=== PATIENT | male | born 1965 | race Caucasian/White ===

== ENCOUNTER 2024-04-18 15:41 | Inpatient (IN) | payer SELFPAY ==
[~2024-04-18] VITALS: Ht 170.1 cm; Wt 67.3 kg
[2024-04-18 15:57] VITALS: BP 167/82
[2024-04-18 16:35] LABS: BASO # 0.1 10*3/uL (0.0-0.1); BASO % 0.5 % (0.0-1.0); EOS # 0.1 10*3/uL (0.0-0.4); HEMATOCRIT 40.4 % (42.0-52.0); LYMPH # 1.1 10*3/uL (1.3-4.4); LYMPH % 9.4 % (27.0-41.0); MEAN CELL VOLUME 87.1 fl (80.0-94.0); MEAN CORPUSCULAR HGB CONC 34.4 g/dl (33.0-37.0); MEAN PLATELET VOLUME 9.1 fl (9.6-12.3); MONO # 0.7 10*3/uL (0.1-1.0); NEUT # 9.4 10*3/uL (2.3-7.9); NEUT % 82.7 % (47.0-73.0); PLATELET COUNT AUTOMATED 396 10*3/uL (130-400); RED BLOOD COUNT 4.64 10*6/uL (4.50-5.90); RED CELL DISTRI WIDTH 12.5 % (0-14.5); WHITE BLOOD COUNT 11.3 10*3/uL (4.8-10.8)
[2024-04-18 16:56] LABS: BUN 10 mg/dl (9-23); CHLORIDE 100 mmol/L (98-107); POTASSIUM 3.6 mmol/L (3.4-5.1)
[2024-04-18] MEDS ORDERED: INSULIN REGULAR, HUMAN 1 UNIT/0.01 ML IV ONE (17:25)
[2024-04-18] MEDS ORDERED: SODIUM CHLORIDE 0.9% 1,000 ML IV ONE (17:40)
[2024-04-18] MEDS ORDERED: Vancomycin Hydrochloride 250 ML IV ONE (17:40)
[2024-04-18] MEDS ORDERED: Piperacillin Sodium/Tazobact 50 ML IV ONE (17:40)
[2024-04-18] MEDS ORDERED: TEMAZEPAM 15 MG CAP PO PRN (19:25)
[2024-04-18] MEDS ORDERED: ACETAMINOPHEN 650 MG SUPP R PRN (19:25)
[2024-04-18] MEDS ORDERED: DEXTROSE 10 % IN WATER 250 ML IV PRN (19:25)
[2024-04-18] MEDS ORDERED: Ondansetron Hydrochloride 4 MG/2 ML VIAL IV PRN (19:25)
[2024-04-18] MEDS ORDERED: Acetaminophen/Hydrocodone 5 MG/325 MG TABLET PO PRN (19:25)
[2024-04-18] MEDS ORDERED: Magnesium Hydroxide 30 ML UDC PO PRN (19:25)
[2024-04-18] MEDS ORDERED: ACETAMINOPHEN 325 MG TAB PO PRN (19:25)
[2024-04-18] MEDS ORDERED: BISACODYL 5 MG TAB PO PRN (19:25)
[2024-04-18] MEDS ORDERED: BISACODYL 10 MG SUPP R PRN (19:25)
[2024-04-18 19:32] VITALS: BP 153/55
[2024-04-18 21:10] VITALS: BP 147/78
[2024-04-18] MEDS ORDERED: INSULIN LISPRO 1 UNIT/0.01 ML SQ SCH (22:00)
[2024-04-19] VITALS: BP 123/69
[2024-04-19] MEDS ORDERED: METRONIDAZOLE 500 MG TAB PO SCH
[2024-04-19] MEDS ORDERED: Piperacillin Sodium/Tazobact 50 ML IV SCH
[2024-04-19] MEDS ORDERED: VANCOMYCIN/WATER FOR INJ (PEG) 250 ML IV SCH (04:00)
[2024-04-19] MEDS ORDERED: LEPTOSPERMUM HONEY 0.5 OZ TUBE T ONE (06:17)
[2024-04-19 06:19] LABS: BASO # 0.1 10*3/uL (0.0-0.1); BASO % 0.6 % (0.0-1.0); EOS # 0.2 10*3/uL (0.0-0.4); EOS % 1.9 % (1.0-4.0); HEMATOCRIT 36.6 % (42.0-52.0); LYMPH # 1.6 10*3/uL (1.3-4.4); LYMPH % 17.3 % (27.0-41.0); MEAN CELL VOLUME 89.5 fl (80.0-94.0); MEAN CORPUSCULAR HGB 29.8 pg (27.0-31.0); MEAN CORPUSCULAR HGB CONC 33.3 g/dl (33.0-37.0); MEAN PLATELET VOLUME 8.9 fl (9.6-12.3); MONO # 0.7 10*3/uL (0.1-1.0); MONO % 7.7 % (3.0-9.0); NEUT # 6.8 10*3/uL (2.3-7.9); NEUT % 72.2 % (47.0-73.0); PLATELET COUNT AUTOMATED 360 10*3/uL (130-400); RED BLOOD COUNT 4.09 10*6/uL (4.50-5.90); RED CELL DISTRI WIDTH 12.3 % (0-14.5); WHITE BLOOD COUNT 9.4 10*3/uL (4.8-10.8)
[2024-04-19 06:37] LABS: ALKALINE PHOSPHATASE 70 U/L (46-116); BUN 10 mg/dl (9-23); CHLORIDE 106 mmol/L (98-107); CHOLESTEROL 167 mg/dL (<200); FREE T4 1.24 ng/dl (0.89-1.76); LDL CHOLESTEROL 116 mg/dL (9-159); POTASSIUM 3.8 mmol/L (3.4-5.1); SGPT/ALT 8 U/L (5-49); TRIGLYCERIDES 60 mg/dl (<150)
[2024-04-19 08:00] VITALS: BP 151/89
[2024-04-19] MEDS ORDERED: Enoxaparin Sodium 40 MG/0.4 ML SYR SC SCH (10:00)
[2024-04-19] MEDS ORDERED: Cholecalciferol 2,000 UNIT TABLET (50 MCG) PO SCH (10:00)
[2024-04-19] MEDS ORDERED: Insulin Glargine, Recombinan 1 UNIT/0.01 ML SC SCH (10:00)
[2024-04-19 12:00] VITALS: BP 156/81
[2024-04-19] MEDS ORDERED: LISINOPRIL 10 MG TAB PO SCH (12:55)
[2024-04-19 16:00] VITALS: BP 158/68
[2024-04-19 20:00] VITALS: BP 164/87
[2024-04-19] MEDS ORDERED: ATORVASTATIN CALCIUM 40 MG TABLET PO SCH (22:00)
[2024-04-20] VITALS: BP 138/75
[2024-04-20 06:33] LABS: BASO # 0.1 10*3/uL (0.0-0.1); BASO % 0.7 % (0.0-1.0); EOS # 0.2 10*3/uL (0.0-0.4); EOS % 2.7 % (1.0-4.0); HEMATOCRIT 36.2 % (42.0-52.0); LYMPH # 1.7 10*3/uL (1.3-4.4); LYMPH % 23.2 % (27.0-41.0); MEAN CELL VOLUME 89.6 fl (80.0-94.0); MEAN CORPUSCULAR HGB CONC 33.4 g/dl (33.0-37.0); MEAN PLATELET VOLUME 9.2 fl (9.6-12.3); MONO # 0.5 10*3/uL (0.1-1.0); NEUT # 4.7 10*3/uL (2.3-7.9); PLATELET COUNT AUTOMATED 360 10*3/uL (130-400); RED BLOOD COUNT 4.04 10*6/uL (4.50-5.90); RED CELL DISTRI WIDTH 12.4 % (0-14.5); WHITE BLOOD COUNT 7.1 10*3/uL (4.8-10.8)
[2024-04-20 06:59] LABS: BUN 9 mg/dl (9-23); CHLORIDE 107 mmol/L (98-107); POTASSIUM 3.5 mmol/L (3.4-5.1)
[2024-04-20 08:00] VITALS: BP 131/66
[2024-04-20 12:00] VITALS: BP 152/86
[2024-04-20 16:00] VITALS: BP 133/80
[2024-04-20] MEDS ORDERED: VANCOMYCIN/WATER FOR INJ (PEG) 300 ML IV SCH (17:00)
[2024-04-20 20:00] VITALS: BP 139/83
[2024-04-20] MEDS ORDERED: Meropenem 1 GM in SODIUM CHLORIDE 0.9% 100 ML IV SCH (22:00)
[2024-04-21] VITALS: BP 142/84
[2024-04-21 06:31] LABS: BASO # 0.1 10*3/uL (0.0-0.1); BASO % 0.9 % (0.0-1.0); EOS # 0.2 10*3/uL (0.0-0.4); EOS % 3.2 % (1.0-4.0); HEMATOCRIT 34.8 % (42.0-52.0); LYMPH # 1.8 10*3/uL (1.3-4.4); LYMPH % 26.8 % (27.0-41.0); MEAN CORPUSCULAR HGB 29.2 pg (27.0-31.0); MEAN CORPUSCULAR HGB CONC 32.8 g/dl (33.0-37.0); MEAN PLATELET VOLUME 8.9 fl (9.6-12.3); MONO # 0.5 10*3/uL (0.1-1.0); MONO % 7.4 % (3.0-9.0); NEUT # 4.1 10*3/uL (2.3-7.9); NEUT % 61.4 % (47.0-73.0); PLATELET COUNT AUTOMATED 380 10*3/uL (130-400); RED BLOOD COUNT 3.91 10*6/uL (4.50-5.90); RED CELL DISTRI WIDTH 12.4 % (0-14.5); WHITE BLOOD COUNT 6.6 10*3/uL (4.8-10.8)
[2024-04-21 07:13] LABS: BUN 10 mg/dl (9-23); CHLORIDE 107 mmol/L (98-107); POTASSIUM 3.5 mmol/L (3.4-5.1)
[2024-04-21 08:00] VITALS: BP 160/90
[2024-04-21 12:00] VITALS: BP 177/90
[2024-04-21] MEDS ORDERED: Piperacillin Sodium/Tazobact 4.5 GM in SODIUM CHLORIDE 0.9% 100 ML IV SCH (12:00)
[2024-04-21 16:00] VITALS: BP 147/77
[2024-04-21 20:00] VITALS: BP 143/83
[2024-04-22] VITALS: BP 138/85
[2024-04-22 06:38] LABS: BASO # 0.1 10*3/uL (0.0-0.1); BASO % 0.9 % (0.0-1.0); EOS # 0.2 10*3/uL (0.0-0.4); HEMATOCRIT 39.2 % (42.0-52.0); LYMPH # 1.6 10*3/uL (1.3-4.4); LYMPH % 20.4 % (27.0-41.0); MEAN CELL VOLUME 90.5 fl (80.0-94.0); MEAN CORPUSCULAR HGB 29.6 pg (27.0-31.0); MEAN CORPUSCULAR HGB CONC 32.7 g/dl (33.0-37.0); MEAN PLATELET VOLUME 8.9 fl (9.6-12.3); MONO # 0.5 10*3/uL (0.1-1.0); NEUT # 5.3 10*3/uL (2.3-7.9); NEUT % 69.3 % (47.0-73.0); PLATELET COUNT AUTOMATED 435 10*3/uL (130-400); RED BLOOD COUNT 4.33 10*6/uL (4.50-5.90); RED CELL DISTRI WIDTH 12.4 % (0-14.5); WHITE BLOOD COUNT 7.6 10*3/uL (4.8-10.8)
[2024-04-22 06:41] LABS: BUN 9 mg/dl (9-23); CHLORIDE 105 mmol/L (98-107); POTASSIUM 3.9 mmol/L (3.4-5.1)
[2024-04-22 08:00] VITALS: BP 155/82
[2024-04-22] MEDS ORDERED: Insulin Glargine, Recombinan 1 UNIT/0.01 ML SC SCH (10:00)
[2024-04-22 12:00] VITALS: BP 112/56
[2024-04-22 16:00] VITALS: BP 149/86
[2024-04-22 20:00] VITALS: BP 139/78
[2024-04-23] VITALS (8 sets, daily range): BP systolic 129–172; BP diastolic 75–107
[2024-04-23 07:33] LABS: BASO # 0.1 10*3/uL (0.0-0.1); BASO % 0.8 % (0.0-1.0); EOS # 0.2 10*3/uL (0.0-0.4); EOS % 3.4 % (1.0-4.0); HEMATOCRIT 38.4 % (42.0-52.0); LYMPH # 1.3 10*3/uL (1.3-4.4); LYMPH % 18.6 % (27.0-41.0); MEAN CELL VOLUME 89.9 fl (80.0-94.0); MEAN CORPUSCULAR HGB 29.3 pg (27.0-31.0); MEAN CORPUSCULAR HGB CONC 32.6 g/dl (33.0-37.0); MEAN PLATELET VOLUME 8.6 fl (9.6-12.3); MONO # 0.5 10*3/uL (0.1-1.0); MONO % 7.3 % (3.0-9.0); NEUT # 4.9 10*3/uL (2.3-7.9); NEUT % 69.6 % (47.0-73.0); PLATELET COUNT AUTOMATED 387 10*3/uL (130-400); RED BLOOD COUNT 4.27 10*6/uL (4.50-5.90); RED CELL DISTRI WIDTH 12.4 % (0-14.5); WHITE BLOOD COUNT 7.1 10*3/uL (4.8-10.8)
[2024-04-23 07:57] LABS: BUN 8 mg/dl (9-23); CHLORIDE 107 mmol/L (98-107)
[2024-04-23] MEDS ORDERED: BUPIVACAINE 0.5% 0 ML IV ONE (08:23)
[2024-04-23] MEDS ORDERED: Vancomycin Hydrochloride 1,000 MG VIAL ONE (08:23)
[2024-04-23] MEDS ORDERED: SODIUM CHLORIDE 0.9% 100 ML IV ONE ×2 (10:10→10:23)
[2024-04-23] MEDS ORDERED: PROPOFOL 200 MG/20 ML VIAL IV ONE (12:28)
[2024-04-23] MEDS ORDERED: Lidocaine Hydrochloride 2% 5 ML SDV IM ONE (12:28)
[2024-04-24] VITALS: BP 125/75
[2024-04-24 06:48] LABS: BUN 9 mg/dl (9-23); CHLORIDE 105 mmol/L (98-107); POTASSIUM 3.5 mmol/L (3.4-5.1)
[2024-04-24 08:00] VITALS: BP 128/89
[2024-04-24] MEDS ORDERED: VANCOMYCIN/WATER FOR INJ (PEG) 300 ML IV SCH (10:00)
[2024-04-24 12:00] VITALS: BP 132/82
[2024-04-24 13:06] LABS: ACID FAST SPEC PROCESSING Tissue Grinding (.)
[2024-04-24 13:06] LABS: ACID FAST SPEC PROCESSING Tissue Grinding (.)
[2024-04-24 13:06] LABS: ACID FAST SPEC PROCESSING Tissue Grinding (.)
[2024-04-24 13:06] LABS: ACID FAST SPEC PROCESSING Tissue Grinding (.)
[2024-04-24] MEDS ORDERED: ERTAPENEM1 GM IV (13:50)
[2024-04-24 16:00] VITALS: BP 131/73
[2024-04-24 20:00] VITALS: BP 119/71
[2024-04-25] VITALS: BP 146/77
[2024-04-25 04:59] LABS: BUN 9 mg/dl (9-23); CHLORIDE 107 mmol/L (98-107); POTASSIUM 3.5 mmol/L (3.4-5.1)
[2024-04-25 08:00] VITALS: BP 119/74
[2024-04-25 12:00] VITALS: BP 124/73
[2024-04-25] MEDS ORDERED: LISINOPRIL10 M1 PO (13:44)
[2024-04-25] MEDS ORDERED: ATORVASTATIN CA40 M1 PO (13:44)
[2024-04-25] MEDS ORDERED: VITAMIN D350 MCG PO (13:44)
[2024-04-25] MEDS ORDERED: HYDROCODONE-AC1 EAC1 PO (13:44)
[2024-04-25] MEDS ORDERED: HUMALOG100 UNIT/1 SC (13:50)
[2024-04-25] MEDS ORDERED: LANTUS SOL100 UNIT/1 SC (13:50)
[2024-04-25 16:00] VITALS: BP 126/72
== END 2024-04-25 21:40 | disposition home or self-care (01) | DRG 628 ==
LOC: ED 15:41 → EDHOLD 18:29 → 4E 18:29
PROVIDERS: Physician Assistant Medical; Podiatrist; Student in an Organized Health Care Education/Training Program; ADMIT Internal Medicine; ATTEND Internal Medicine
PROC: 02HV33Z Insertion of Infusion Device into Superior Vena Cava, Percutaneous Approach (ICD-10-PCS; 2024-04-22)
PROC: 0QBQ0ZX Excision of Right Toe Phalanx, Open Approach, Diagnostic (ICD-10-PCS; principal; 2024-04-23)
PROC: 0QBN0ZX Excision of Right Metatarsal, Open Approach, Diagnostic (ICD-10-PCS; 2024-04-23)
PROC: 0K9 Muscles, Drainage (ICD-10-PCS; 2024-04-23)
DX: E11.69 Type 2 diabetes mellitus with other specified complication (principal); E43 Unspecified severe protein-calorie malnutrition; L89.893 Pressure ulcer of other site, stage 3; E87.1 Hypo-osmolality and hyponatremia; M86.8X7 Other osteomyelitis, ankle and foot; L03.031 Cellulitis of right toe; E55.9 Vitamin D deficiency, unspecified; D64.9 Anemia, unspecified; D72.828 Other elevated white blood cell count; E11.51 Type 2 diabetes mellitus with diabetic peripheral angiopathy without gangrene; E11.621 Type 2 diabetes mellitus with foot ulcer; S91.101A Unspecified open wound of right great toe without damage to nail, initial encounter; L97.519 Non-pressure chronic ulcer of other part of right foot with unspecified severity; E11.65 Type 2 diabetes mellitus with hyperglycemia; Z79.899 Other long term (current) drug therapy; Z79.01 Long term (current) use of anticoagulants; Z68.23 Body mass index [BMI] 23.0-23.9, adult; Z79.2 Long term (current) use of antibiotics; Z87.891 Personal history of nicotine dependence; Z83.3 Family history of diabetes mellitus; X58.XXXA Exposure to other specified factors, initial encounter; Y93.89 Activity, other specified; Y92.89 Other specified places as the place of occurrence of the external cause; Y99.8 Other external cause status

== ENCOUNTER 2024-05-24 13:47 | Emergency (ER) | payer MEDICAID ==
[~2024-05-24] VITALS: Ht 170.1 cm; Wt 64.9 kg
[~2024-05-24 13:47] MED LIST: ATORVASTATIN CA40 M1 PO; ERTAPENEM1 GM IV; HUMALOG100 UNIT/1 SC; HYDROCODONE-AC1 EAC1 PO; LANTUS SOL100 UNIT/1 SC; LISINOPRIL10 M1 PO; VITAMIN D350 MCG PO
[2024-05-24] MEDS ORDERED: SODIUM CHLORIDE 0.9% 1,000 ML IV ONE (14:20)
[2024-05-24 14:25] LABS: BASO % 0.5 % (0.0-1.0); EOS # 0.1 10*3/uL (0.0-0.4); EOS % 2.5 % (1.0-4.0); HEMATOCRIT 39.4 % (42.0-52.0); MEAN CELL VOLUME 88.1 fl (80.0-94.0); MEAN CORPUSCULAR HGB 29.1 pg (27.0-31.0); MEAN PLATELET VOLUME 9.6 fl (9.6-12.3); MONO # 0.4 10*3/uL (0.1-1.0); MONO % 6.8 % (3.0-9.0); NEUT # 4.2 10*3/uL (2.3-7.9); PLATELET COUNT AUTOMATED 204 10*3/uL (130-400); RED BLOOD COUNT 4.47 10*6/uL (4.50-5.90); RED CELL DISTRI WIDTH 12.5 % (0-14.5); WHITE BLOOD COUNT 5.7 10*3/uL (4.8-10.8)
[2024-05-24 14:46] LABS: ALKALINE PHOSPHATASE 59 U/L (46-116); BUN 14 mg/dl (9-23); CHLORIDE 105 mmol/L (98-107); POTASSIUM 4.2 mmol/L (3.4-5.1); SGPT/ALT 20 U/L (5-49); TOTAL PROTEIN 6.5 gm/dL (6.0-8.0)
== END 2024-05-24 15:23 | disposition home or self-care (01) ==
LOC: ED 13:47
PROVIDERS: Nurse Practitioner
DX: R03.1 Nonspecific low blood-pressure reading (principal); L03.115 Cellulitis of right lower limb; I10 Essential (primary) hypertension; E11.9 Type 2 diabetes mellitus without complications; Z79.2 Long term (current) use of antibiotics; Z79.899 Other long term (current) drug therapy; Z79.4 Long term (current) use of insulin; Z87.891 Personal history of nicotine dependence